=== PATIENT | female | born 1940 | race Caucasian/White ===

== ENCOUNTER 2016-11-25 10:37 | Inpatient (IN) | payer OTHER ==
[2016-11-07 10:42] VITALS: BMI 26.0
--- NOTE | 2016-11-07 11:16 | PAT Medication Instructions ---
Service Date November 07, 2016. Current Home Medication List Acetaminophen (Tylenol), 1,000 MG PO Q6 PRN for Pain Amlodipine (Norvasc), 5 MG PO QPM Atorvastatin (Lipitor), 20 MG PO QPM Calcium/Vitamin D (Os-Nate 500 Plus D), 1 TAB PO QPM Cyanocobalamin (Vitamin B-12 1000 Mcg), 1,000 MCG PO QPM Diltiazem Hcl Coated Beads (Cardizem La), 300 MG PO QPM Levothyroxine Sodium (Tirosint), 1 CAP PO QAM Metoprolol Succinate (Toprol Xl), 25 MG PO QPM Multivitamin (Multivitamin), 1 TAB PO QAM Olmesartan Medoxomil (Benicar *), 40 MG PO QPM Omeprazole (Prilosec), 20 MG PO QPM Probiotic Product (Align), 1 CAP PO DAILY PRN Psyllium (Metamucil Powder), 1 SCOOPS PO Q2D Medication Instructions For Your Scheduled Surgery - Hold the following medications the morning of surgery: Probiotic Product (Align), 1 CAP PO DAILY PRN Psyllium (Metamucil Powder), 1 SCOOPS PO Q2D Multivitamin (Multivitamin), 1 TAB PO QAM - Take the following medications the morning of surgery with a sip of water OTHERWISE NOTHING TO EAT OR DRINK AFTER MIDNIGHT: Levothyroxine Sodium (Tirosint), 1 CAP PO QAM Acetaminophen (Tylenol), 1,000 MG PO Q6 PRN for Pain (may take if needed up to 4 hours prior to surgery) - Take the following medications as scheduled the night before surgery: Omeprazole (Prilosec), 20 MG PO QPM Metoprolol Succinate (Toprol Xl), 25 MG PO QPM Amlodipine (Norvasc), 5 MG PO QPM Atorvastatin (Lipitor), 20 MG PO QPM Calcium/Vitamin D (Os-Nate 500 Plus D), 1 TAB PO QPM Cyanocobalamin (Vitamin B-12 1000 Mcg), 1,000 MCG PO QPM Diltiazem Hcl Coated Beads (Cardizem La), 300 MG PO QPM Acetaminophen (Tylenol), 1,000 MG PO Q6 PRN for Pain - Do Not take the following medications the night before surgery: Olmesartan Medoxomil (Benicar *), 40 MG PO QPM If you have any questions please call us at [phone] or [phone] or [phone]
[2016-11-07 11:35] LABS: BASO % 0.5 %; BASO ABS # 0.04 K/uL (0-0.2); COMPLETE YES; EOS % 6.4 %; HEMATOCRIT 41.4 % (37-47); IG% 0.1 %; LYMPH % 26.9 %; LYMPH ABS # 1.97 K/uL (1.2-3.4); MEAN CELL VOLUME 93.5 fL (80-100); MEAN CORPUSCULAR HEMOGLOBIN 31.6 pg (25-34); MEAN CORPUSCULAR HGB CONC 33.8 g/dl (32-36); MEAN PLATELET VOLUME 10.1 fL (7.4-10.4); MONO % 7.1 %; PLATELET COUNT 327 K/uL (130-400); RED BLOOD COUNT 4.43 M/uL (4.2-5.4); WHITE BLOOD COUNT 7.31 K/uL (4.8-10.8)
[2016-11-07 11:43] LABS: URINE APPEARANCE CLEAR (CLEAR); URINE BILIRUBIN NEG (NEG); URINE COLOR YELLOW; URINE EPITHELIAL CELL AUTO 20-30 /lpf (0-5); URINE NITRITE NEG (NEG); URINE SPECIFIC GRAVITY 1.018 (1.000-1.030); UROBILINOGEN NEG (NEG)
[2016-11-07 11:45] LABS: PROTHROMBIN TIME (PATIENT) 10.3 SECONDS (9.0-12.0)
[2016-11-07 11:51] LABS: MANUAL MICROSCOPIC REQUIRED? NO; REVIEW REQ? NO
[2016-11-07 12:06] LABS: ESTIMATED AVERAGE GLUCOSE 120 mg/dl; HA1C FLAG Normal (Normal)
[2016-11-07 12:07] LABS: BUN/CREATININE RATIO 14.8 (10-20); CALCIUM 9.9 mg/dl (8.5-10.1); CREATININE 1.4 mg/dl (0.60-1.20); POTASSIUM 5.2 mmol/L (3.5-5.1)
--- NOTE | 2016-11-07 12:35 | DIAGNOSTIC IMAGING REPORT ---
CHEST PREADMISSION(PA/LAT) CLINICAL HISTORY: Preoperative evaluation. COMPARISON STUDY: Chest radiograph November 30, 2012. FINDINGS: Lung volumes are normal. There is no pneumothorax or pleural effusion. Cardiac size is normal. Mediastinal contours are normal. There is no evidence of pulmonary edema. There are suspected cholecystectomy clips. IMPRESSION: No acute cardiopulmonary findings. Electronically signed by: John Knapp M.D. 11/07/2016 12:34 PM Dictated Date/Time: 11/07/2016 12:33 PM
--- NOTE | 2016-11-18 10:41 | HISTORY & PHYSICAL EXAMINATION ---
DATE OF ADMISSION: 11/25/2016 SUBJECTIVE AND CHIEF COMPLAINT: Left shoulder pain. HISTORY OF PRESENT ILLNESS: The patient is a 76-year-old female who comes in complaining of shoulder pain on both sides. She says it is more significant on the left in comparison to the right. She states the symptoms have been chronic and nontraumatic in nature. The pain occurs constantly and is described as aching, sharp and throbbing. She has tried cortisone injections, nonsteroidal anti-inflammatories and physical therapy with no relief. She would like to proceed with a left reverse total shoulder arthroplasty. PAST MEDICAL HISTORY: Significant for hypertension, hypercholesterolemia, hypothyroidism and osteoarthritis. PAST SURGICAL HISTORY: Low back fusion, bilateral total hip arthroplasty, left TKA, right carpal tunnel release, cholecystectomy, right shoulder subacromial decompression. SOCIAL HISTORY: She drinks alcohol occasionally. She denies smoking or tobacco use. She denies IV or illegal drug use. She lives in a [address]. She is currently retired. FAMILY HISTORY: Noncontributory. ALLERGIES: LEVAQUIN AND SULFAS. MEDICATIONS: Metoprolol 100 mg one tablet twice a day, Zantac 150 mg one tablet twice a day, multivitamin one tablet daily, Tirosint 50 mcg one tablet daily, omeprazole 20 mg one tablet daily, Toprol XL 25 mg daily, Benicar 40 mg one tablet daily. REVIEW OF SYSTEMS: She denies headaches, fevers, chills, double vision, blurry vision, sore throat, cough, chest pain, nausea, vomiting, diarrhea, constipation, numbness, tingling, tired, urinary difficulties, thoughts to harm herself or harm others or depression. She is positive for joint pain and stiffness in her left shoulder. OBJECTIVE: GENERAL APPEARANCE: The patient is a 76-year-old female who is sitting, in no acute distress. She is well-dressed, well-nourished. She is awake, alert and oriented x3. VITAL SIGNS: She is 5 feet 5 inches tall, 154 pounds, blood pressure is 128/76. HEENT: Normocephalic, atraumatic. Extraocular movements are intact. PERRLA. Mucosa was moist. No septal deviation. NECK: Supple with no lymphadenopathy, no JVD, no thyromegaly. HEART: Regular rate and rhythm with no murmurs or gallops. LUNGS: Clear to auscultation. No wheezing or rhonchi. ABDOMEN: Soft, nontender, nondistended. Normal bowel sounds. No hepatosplenomegaly. EXTREMITIES: Paying particular attention to the left upper extremity, she is able to actively flex to 160 degrees, abduct to 120 degrees, externally rotate to 75 degrees. She has diffuse tenderness over the shoulder. NEUROLOGIC: Cranial nerves II-XII were intact. Pulses were compared bilaterally and were equal. IMAGING: X-rays of the left shoulder demonstrate osteophytic change of the glenohumeral joint with rounding of the humeral head and slight elevation of the humeral head with relation to the acromion. IMPRESSION: Left shoulder degenerative joint disease. PLAN: The patient is scheduled for a left reverse total shoulder arthroplasty. She has failed conservative therapies, which include cortisone injections, nonsteroidal anti-inflammatories and physical therapy. This affects her activities of daily living and make it difficult to perform these. She would like to proceed with a left reverse total shoulder arthroplasty. Risks and benefits were discussed and included, but not limited to infection, DVT, pain, stiffness, need for revision surgery, damage to blood vessels, damage to nerves, PE, and anesthesia risks, were all discussed with the patient and she wishes to proceed. All questions were answered to her satisfaction. There is no DVT prophylaxis needed at this time. Discharge: She would like to be discharged home with home health. Her postop visit will be 12/08/2016 at 9:30 a.m. ANNA
[~2016-11-25] VITALS: Ht 165.1 cm; Wt 71.1 kg
[2016-11-25] VITALS (8 sets, daily range): BP systolic 119–148; BP diastolic 67–80; PULSE 67–95; TEMP 36.3–36.6; O2SAT 95–96; Ht 165.1 cm; Wt 71.1 kg
[~2016-11-25 10:37] MED LIST: ACET-1256 PO; ACETAMINOPHEN 500 MG TAB PO SCH; AMLO-110 PO; ATOR-54 PO; BNC40 PO; BUPIVACAINE 0.5 % 5 MG/1 ML PF 10ML VIAL ONE; CALC500C70 PO; CEFAZOLIN 2000 MG/60 ML D5W 60 ML IV SCH; CYAN10004 PO; DEXAMETHASONE 4 MG TAB PO SCH; DEXAMETHASONE SOD INJ 4 MG/ML VIAL ONE; DILT300T9 PO; FAMOTIDINE 20 MG TAB PO SCH; GABAPENTIN 300 MG CAP PO SCH; LACTATED RINGER'S 1000ML 1,000 ML IV SCH; LACTATED RINGER'S 1000ML IV SCH; LEVO50CA2 PO; METO25TA3 PO; METOCLOPRAMIDE HCL 10 MG TAB PO SCH; MISC4CAP PO; MULT-506 PO; PRLSR20 PO; PSYL58.69 PO; ROPIVACAINE 5MG/ML 30 ML 150 MG, BUPIVACAINE/EPINEPHR 0.5% MPF 30 ML, KETOROLAC TROMETH... INFIL SCH
[2016-11-25] MEDS ORDERED: FENTANYL CITRATE INJ 50 MCG/1 ML 2 ML VIAL ONE (11:31)
[2016-11-25] MEDS ORDERED: MIDAZOLAM HCL 1 MG/ML 2ML VIAL ONE (11:31)
--- NOTE | 2016-11-25 11:44 | History & Physical Bridge Note ---
H&P Re-Evaluation Bridge Note: I have examined the patient, reviewed the History & Physical and in the interval since the performance of the History & Physical I have noted the following changes of clinical significance: No changes noted
[2016-11-25] MEDS: TRANEXAMIC ACID INJ 1,000 MG in SODIUM CHLORIDE 0.9% 100ML 100 ML IV SCH ×2 (12:00→17:26)
[2016-11-25] MEDS ORDERED: LACTATED RINGER'S 1000ML 1,000 ML IV PRN (12:05)
[2016-11-25] MEDS ORDERED: FENTANYL CITRATE INJ 50 MCG/1 ML 2 ML VIAL IV PRN (12:15)
[2016-11-25] MEDS ORDERED: ONDANSETRON INJ 2 MG/ML 2 ML VIAL IV PRN ×2 (12:15→15:00)
[2016-11-25] MEDS ORDERED: POVIDONE-IODINE OP SOLN 30 ML BTL ONE (12:17)
[2016-11-25] MEDS ORDERED: BACITRACIN 50000 UNIT VIAL ONE (12:17)
[2016-11-25] MEDS ORDERED: ORTHO JOINT ANESTHETIC ONE (12:17)
--- NOTE | 2016-11-25 14:14 | [facility] Post Operative Brief Note ---
Immediate Operative Summary Operative Date Nov 25, 2016. Pre-Operative Diagnosis Left Shoulder Degenerative Joint Disease and rotator cuff arthropathy Post-Operative Diagnosis same, plus biceps tear Procedure(s) Performed Left Reverse Total Shoulder Arthroplasty, biceps tenodesis Surgeon Dr. Shun Alvarado Immersion Metal Cleaner Surgeon(s) Pk Champagne PA-C Estimated Blood Loss 50ML Findings above Specimens A. Left Humeral Head Drains 1 hemovac Anesthesia geta, interscalene Complication(s) None Disposition Recovery Room / PACU
[2016-11-25] MEDS ORDERED: ROCURONIUM BROMIDE 10 MG/ML 5 ML VIAL ONE (14:21)
[2016-11-25] MEDS ORDERED: LIDOCAINE HCL 2% 2 ML VIAL (20MG/ML) ONE (14:21)
[2016-11-25] MEDS ORDERED: NEOSTIGMINE METHYLSULFATE 5 MG/5 ML SYR ONE (14:21)
[2016-11-25] MEDS ORDERED: ONDANSETRON INJ 2 MG/ML 2 ML VIAL ONE (14:21)
[2016-11-25] MEDS ORDERED: GLYCOPYRROLATE INJ 0.2 MG/ML VIAL ONE (14:21)
[2016-11-25] MEDS ORDERED: VASOPRESSIN 20 UNIT/ML VIAL ONE (14:21)
[2016-11-25] MEDS ORDERED: PROPOFOL IV EMULSION 10 MG/ML 20 ML VIAL IV ONE (14:21)
[2016-11-25] MEDS ORDERED: SOD PHOSPHATE/SOD BIPHOSPHATE ENEMA 132 ML BTL PR PRN (15:00)
[2016-11-25] MEDS ORDERED: BISACODYL 10 MG SUPP PR PRN (15:00)
[2016-11-25] MEDS ORDERED: ALUMINUM/MAGNESIUM SUSP 30 ML UDC PO PRN (15:00)
[2016-11-25] MEDS ORDERED: ZOLPIDEM TARTRATE 5 MG TAB PO PRN (15:00)
[2016-11-25] MEDS ORDERED: OXYCODONE HCL IR 5 MG TAB (IMMEDIATE RELEASE) PO PRN (15:00)
[2016-11-25] MEDS ORDERED: MAGNESIUM HYDROXIDE SUSP 30 ML UDC PO PRN (15:00)
[2016-11-25] MEDS ORDERED: NO NSAIDS SCH (15:00)
--- NOTE | 2016-11-25 15:17 | DIAGNOSTIC IMAGING REPORT ---
LEFT SHOULDER MIN 2 VIEWS ROUTINE CLINICAL HISTORY: Post shoulder surgery COMPARISON: None FINDINGS: Alignment of the left shoulder arthroplasty is anatomic. There is no periprosthetic fracture or unexpected radiopaque foreign body. Drains and skin erik are present. IMPRESSION: Expected findings following left shoulder arthroplasty. Electronically signed by: John Knapp M.D. 11/25/2016 3:16 PM Dictated Date/Time: 11/25/2016 3:15 PM
--- NOTE | 2016-11-25 15:28 | Anesthesiology Progress Note ---
Anesthesia Post Op Note Date & Time Nov 25, 2016 at 15:26 Vital Signs Pain Intensity: 0 Vital Signs Past 12 Hours Date Time Temp Pulse Resp B/P (MAP) Pulse Ox O2 Delivery O2 Flow Rate FiO2 11/25/16 15:20 36.2 71 16 123/67 96 Room Air Mask 11/25/16 15:10 73 16 120/74 96 Room Air Mask 11/25/16 15:00 76 16 123/77 98 Mask 10 11/25/16 14:50 72 16 117/66 99 Mask 10 11/25/16 14:44 36.4 79 16 113/86 99 Mask 10 11/25/16 10:51 36.5 95 20 148/72 96 Room Air Notes Mental Status: alert / awake / arousable, participated in evaluation Pt Amnestic to Procedure: Yes Nausea / Vomiting: adequately controlled Pain: adequately controlled Airway Patency, RR, SpO2: stable & adequate BP & HR: stable & adequate Hydration State: stable & adequate Anesthetic Complications: no major complications apparent Pt doing well.
[2016-11-25] MEDS: D5W AND 1/2NSS + 20MEQ KCL 1,000 ML IV SCH (17:25)
[2016-11-25] MEDS: FERROUS GLUCONATE 324 MG TAB PO SCH (18:31)
--- NOTE | 2016-11-25 20:12 | OPERATIVE REPORT ---
DATE OF OPERATION: 11/25/2016 PREOPERATIVE DIAGNOSIS: Left shoulder degenerative joint disease and rotator cuff arthropathy. POSTOPERATIVE DIAGNOSIS: Same. PROCEDURE: Left shoulder reverse total shoulder arthroplasty. SURGEON: Shun Alvarado MD HEALTH UNDERWRITER: Pk Champagne PA-C who was necessary for assistance of the procedure with positioning, prepping, draping, retraction and closure. ANESTHESIA: General endotracheal anesthesia with interscalene block. SPECIMEN: Bone and tissue. DRAINS: One medium Hemovac. ESTIMATED BLOOD LOSS: 20 mL COMPLICATIONS: None. IMPLANTS: Exactech Equinox 13 mm press fit stem, standard glenoid plate, 38 mm glenosphere, +0 humeral tray and +2.5 mm humeral liner. INDICATIONS: The patient is a 76-year-old female with long-standing pain of bilateral shoulders, left greater than right. She has failed conservative measures including injection, anti-inflammatories and rehab. Failing conservative measures, she wished to proceed with left shoulder arthroplasty. Given the rounding of her humeral head, slight elevation of the humeral head and significant osteophytic change off of the greater tuberosity, she would be best served with a reverse total shoulder arthroplasty given that she likely has significant rotator cuff disease. Risks, benefits and alternatives of the surgery including but not limited to infection, DVT, pain, stiffness, need for urgent surgery, failure to relieve all symptoms, damage to blood vessels, damage to nerves, risks of anesthesia were discussed with the patient and she wished to proceed. DESCRIPTION OF PROCEDURE: The patient was identified, laterality was confirmed and marked. She received a preoperative antibiotic as well as interscalene block. She was transferred to the operating room, placed in supine position and induced general endotracheal anesthesia. Then she was placed into a beach chair position, secured with the Tenet positioner. The left shoulder was prepped and draped in usual sterile manner with ChloraPrep. I made a longitudinal incision just lateral to the coracoid, sharply incised the skin utilizing Bovie electrocautery to achieve hemostasis. I mobilized the deltoid laterally and taking the cephalic vein laterally. I then identified the long head of biceps tendon. She had significant tearing of the biceps proximally with good tendon distally. I performed an situ biceps tenodesis with interrupted #2 FiberWire suture and then excised the tendinotic torn portion proximally. She had evidence of a subscapularis tear as well as fairly significant degenerative tendinotic tissue of the supraspinatus and high-grade partial thickness tearing of the infraspinatus insertion. The subscapularis remaining tissue was released and I released the inferior capsule. She had extremely prominent anterior inferior osteophyte of the humeral head that was excised with a rongeur as well as a significant osteophyte off of the greater tuberosity that was debrided. I then pinned into place a humeral cutting guide and made my humeral head resection. I then sequentially reamed and sequentially broached up to a size 13 mm stem. I placed an 11 mm stem into position and then exposed the glenoid. I removed the glenoid labrum and residual biceps tendon stump. I debrided the glenoid with a curette to establish good bleeding response and removed some peripheral osteophytes of the glenoid. There was a large loose body posteriorly that was removed. I then drilled for the central post of the glenoid plate. The glenoid plate post was bone grafted with bone taken from the humeral head and then packed into position. I then placed 4 compression screws into the glenoid and then secured with set screws. The 38 mm glenosphere was then placed into position and I secured with a set screw. I then placed the definitive 13 mm humeral stem into position and then sequentially trialed up to a size +2.5 mm humeral liner. The trial components were removed. The wound was thoroughly irrigated. Deep tissues were anesthetized with Orthomix solution. I then placed the definitive +0 humeral tray into position and locked it with a torque-limiting screw. I then impacted the definitive +2.5 mm humeral liner and reduced the shoulder. We had good range of motion and good soft tissue tensioning. A deep drain was placed. Deltopectoral interval was closed with interrupted #1 Ethibond sutures, subcutaneous tissue with interrupted 2-0 Vicryl suture and the skin with erik. Sterile dressing was applied and sling placed. All needle and sponge counts were correct at the end of the procedure. The patient was transferred to the PACU in stable condition without apparent complication. I attest to the content of the Intraoperative Record and any orders documented therein. Any exceptions are noted below. ANNA
[2016-11-25] MEDS ORDERED: SENNA 8.6 MG TAB PO SCH (21:00)
[2016-11-25] MEDS: DOCUSATE SODIUM 100 MG CAP PO SCH (21:39)
[2016-11-25] MEDS: OXYCODONE HCL 10 MG TABCR (OXYCONTIN) PO SCH (21:39)
[2016-11-25] MEDS: ACETAMINOPHEN 500 MG TAB PO SCH (21:40)
[2016-11-25] MEDS ORDERED: CEFAZOLIN IV 1,000 MG in DEXTROSE 5% 50ML 50 ML IV SCH (22:00)
[2016-11-26] MEDS: D5W AND 1/2NSS + 20MEQ KCL 1,000 ML IV SCH (03:11)
[2016-11-26 04:06] VITALS: BP 146/85; PULSE 74; TEMP 36.5; O2SAT 94
[2016-11-26] MEDS: ACETAMINOPHEN 500 MG TAB PO SCH ×2 (05:41→13:56)
[2016-11-26 06:07] LABS: HEMATOCRIT 36.4 % (37-47); MEAN CELL VOLUME 90.1 fL (80-100); MEAN CORPUSCULAR HEMOGLOBIN 30.4 pg (25-34); MEAN CORPUSCULAR HGB CONC 33.8 g/dl (32-36); MEAN PLATELET VOLUME 9.9 fL (7.4-10.4); PLATELET COUNT 299 K/uL (130-400); RED BLOOD COUNT 4.04 M/uL (4.2-5.4)
[2016-11-26 06:10] LABS: INR 0.9 (0.9-1.1); PROTHROMBIN TIME (PATIENT) 10.1 SECONDS (9.0-12.0)
[2016-11-26 06:40] LABS: BUN/CREATININE RATIO 15.7 (10-20); CALCIUM 8.7 mg/dl (8.5-10.1); CREATININE 1.5 mg/dl (0.60-1.20); POTASSIUM 4.2 mmol/L (3.5-5.1)
[2016-11-26 07:10] VITALS: BP 147/76; PULSE 81; TEMP 36.4; O2SAT 96
[2016-11-26] MEDS: OXYCODONE HCL 10 MG TABCR (OXYCONTIN) PO SCH (08:33)
[2016-11-26] MEDS: DOCUSATE SODIUM 100 MG CAP PO SCH (08:34)
[2016-11-26] MEDS: FERROUS GLUCONATE 324 MG TAB PO SCH ×2 (08:34→13:56)
[2016-11-26] MEDS ORDERED: PANTOprazole SOD 40 MG TAB PO SCH (09:00)
[2016-11-26] MEDS ORDERED: MULTIVITAMIN TAB PO SCH (09:00)
--- NOTE | 2016-11-26 09:03 | Orthopedic Progress Note ---
Orthopedic Progress Note Date of Service Nov 26, 2016. Subjective Post OP Day: 1 Reports: feeling well, pain controlled w PO medications, Denies: complaints, chest pain, SOB, nausea / vomiting, light headedness, calf pain Additional Notes: Drain output last shift 95cc's Objective N/V intact, capillary refill less than 2 sec., dressing C/D/I, A&O x3 Sling in tact, fingers mobile. Date Time Temp Pulse Resp B/P (MAP) Pulse Ox O2 Delivery O2 Flow Rate FiO2 11/26/16 07:30 Room Air 11/26/16 07:10 36.4 81 16 147/76 (99) 96 Room Air 11/26/16 04:06 36.5 74 16 146/85 (105) 94 Room Air 11/25/16 23:30 Room Air 11/25/16 22:52 36.5 85 18 134/80 (98) 96 Room Air 11/25/16 18:52 36.5 67 16 146/80 (102) 95 Room Air 11/25/16 17:55 36.6 77 16 121/77 (92) 95 Room Air 11/25/16 17:25 36.6 76 16 134/76 (95) 96 Room Air 11/25/16 16:55 36.3 81 16 129/80 (96) 96 Room Air 11/25/16 16:25 36.3 72 16 119/67 (84) 95 Room Air 11/25/16 15:55 95 Room Air 11/25/16 15:55 95 Room Air Mask 11/25/16 15:55 36.4 79 16 119/74 (89) 95 Room Air 11/25/16 15:40 36.2 73 16 123/59 94 Room Air Mask 11/25/16 15:30 36.2 70 16 117/65 95 Room Air Mask 11/25/16 15:20 36.2 71 16 123/67 96 Room Air Mask 11/25/16 15:10 73 16 120/74 96 Room Air Mask 11/25/16 15:00 76 16 123/77 98 Mask 10 11/25/16 14:50 72 16 117/66 99 Mask 10 11/25/16 14:44 36.4 79 16 113/86 99 Mask 10 11/25/16 10:51 36.5 95 20 148/72 96 Room Air Laboratory Results 24 Hours: Test 11/26/16 05:25 Hematocrit 36.4 % Hemoglobin 12.3 g/dL Prothromb Time International Ratio 0.9 Prothrombin Time 10.1 SECONDS Assessment & Plan Assessment: POD #1, Left reversed TSA, biceps tenodesis. Plan: PT/ OT D/C planning- Home today No formal PT until follow in office. Discharge Planning Discharge Planning: home Pain Management: Oxycontin, PO Tylenol, Oxy IR
[2016-11-26] MEDS ORDERED: OXYSR10 PO (09:06)
[2016-11-26] MEDS ORDERED: RXC5 PO (09:06)
[2016-11-26] MEDS ORDERED: ONDA8TAB6 PO (09:06)
[2016-11-26] MEDS ORDERED: ACET-1138 PO (09:06)
--- NOTE | 2016-11-26 09:09 | Discharge Instructions ---
Discharge Instructions Date of Service Nov 26, 2016. Admission Reason for Admission: Left Shoulder Osteoarthristis Discharge Discharge Diagnosis / Problem: LEFT SHOULDER REVERSED TSA Discharge Goals Goal(s): Improve function Activity Recommendations Activity Limitations: as noted below . Instructions / Follow-Up Instructions / Follow-Up ACTIVITY RECOMMENDATIONS: SELF CARE INSTRUCTIONS AFTER TOTAL SHOULDER ARTHROPLASTY REVERSE A. You may do daily exercises as taught in physical therapy while in hospital. No lifting with the operative arm. B. You are to wear your sling/immobilizer at all times EXCEPT when performing your daily exercises and for hygiene purposes. C. You may perform dry, daily dressing changes. Please keep your incision covered. You may shower 48 hours after surgery. Do not apply soap or any ointment/ lotions directly over incision. Do not soak incision in bath tub/swimming pool. D. You may use ice as needed to operative shoulder. SPECIAL CARE INSTRUCTIONS: VERY IMPORTANT TO READ AND REVIEW A. There are a few signs you need to watch for after you are home. Call [facility] at [phone] if you experience any of the followin. Increased severe shoulder pain. Some pain is expected especially when you exercise. 2. Increased swelling in you shoulder or arm; pain or swelling in either upper extremity. 3. Any fluid drainage from the incision. 4. Shortness of breath or chest pain. B. Please call [facility] at [phone] if you have any questions or concerns about your operation or recovery. C. Call your physician if: 1. Temperature is greater than 101 degrees (F). 2. Pain is not relieved by prescribed pain medications. 3. Increase drainage or redness from incision. 4. Unanswered questions or concerns. FOLLOW UP VISIT: Please call [facility] at [phone] to schedule a follow up appointment with Dr. Saenz or his PA in 12-14 days from your surgery date. NO FORMAL PT UNTIL AFTER FIRST FOLLOW UP APPT. Current Hospital Diet Patient's current hospital diet: Regular Diet Discharge Diet Recommended Diet: Regular Diet Procedures Procedures Performed: Left Reverse Total Shoulder Arthroplasty, biceps tenodesis Pending Studies Studies pending at discharge: no Laboratory Results Hemoglobin A1c Test 11/07/16 10:34 Range/Units Estimated Average Glucose 120 mg/dl Hemoglobin A1c 5.8 H 4.5-5.6 % Medical Emergencies . Who to Call and When: Medical Emergencies: If at any time you feel your situation is an emergency, please call 911 immediately. . Non-Emergent Contact Non-Emergency issues call your: Primary Care Provider . "Provider Documentation" section prepared by Alvaro Hernandez. . VTE Core Measure Inpt VTE Proph given/why not?: BRIT Barriga's [place] Drug Monitoring Program Search Results: patient reviewed within database, no issues identified
[2016-11-26] MEDS ORDERED: NURSING VERBAL MED ORDER ONE (11:00)
[2016-11-26] MEDS ORDERED: METHYLPREDNISOLONE ACETATE 80 MG/ML VIAL IA STA (11:10)
[2016-11-26] MEDS ORDERED: BUPIVACAINE 0.5 % 5 MG/1 ML PF 10ML VIAL IA STA (11:11)
[2016-11-26 11:55] VITALS: BP 147/76; PULSE 81; TEMP 36.4; O2SAT 96
--- NOTE | 2016-12-03 05:14 | DISCHARGE SUMMARY ---
ADMISSION DIAGNOSIS: Left shoulder osteoarthritis. DISCHARGE DIAGNOSIS: Status post left reverse total shoulder arthroplasty. CONSULTS: None. PROCEDURE: On 11/25/2016 patient underwent a left reverse total shoulder arthroplasty, with biceps tenodesis. HISTORY OF PRESENT ILLNESS: The patient is a 76-year-old female who came in complaining of shoulder pain on both sides. She said it is more significant on the left compared to the right. She states the symptoms are chronic and nontraumatic in nature. She has tried cortisone injections, nonsteroidal anti-inflammatories and physical therapy with no relief. She would like to proceed with a left reverse total shoulder arthroplasty. HOSPITAL COURSE: Postop day 1, patient was feeling well. Pain was controlled with p.o. medications. She denied chest pain, shortness of breath, nausea, vomiting, lightheadedness or calf pain. Her drain output was 95 mL. Sling was intact and fingers were mobile. Discharge plan was to go home today with no formal physical therapy until following up in the office. DISCHARGE CONDITION: Stable. DISCHARGE DISPOSITION: Home with self-care. DISCHARGE MEDICATIONS: Tylenol 1000 mg by mouth every 8 hours for 21 days, Zofran 8 mg by mouth every 8 hours as needed for nausea, OxyContin 10 mg by mouth every 12 hours, oxycodone 5-10 mg by mouth every 4 hours as needed for pain, amlodipine 5 mg by mouth daily in the evening, atorvastatin 20 mg by mouth daily in the evening, calcium/vitamin D one tablet by mouth daily in the evening, vitamin B12 1000 mcg by mouth daily in the evening, diltiazem 300 mg by mouth daily in the evening, levothyroxine 50 mcg by mouth daily in the morning, metoprolol 25 mg by mouth daily in the evening, multivitamin 1 tablet by mouth daily in the morning, Benicar 40 mg by mouth daily in the evening, omeprazole 20 mg by mouth daily in the evening, Metamucil powder once daily by mouth every other day as needed. INSTRUCTIONS: She is to consume her regular diet. She may perform daily exercises as taught in physical therapy while in the hospital. No lifting with the operative arm She is to wear a sling or immobilizer at all times except when performing her daily exercises and for hygiene purposes, may perform dry daily dressing changes, keep her incision covered and may shower 48 hours after surgery, do not apply soap or ointment directly over the incision, do not soak the incision in a bathtub or swimming pool. She may use ice as needed to the operative arm. Silverlon dressing is to be removed after 7 days and dry dressing changes can be used thereafter. She is to call [facility] if she notices any increase in shoulder pain, increase in swelling, redness or drainage from the incision. She is to follow up with Dr. Alvarado or his PA in 12-14 days from the date of the surgery. ANNA
== END 2016-11-26 14:05 | disposition home or self-care (01) | DRG 483 ==
LOC: C.ACU 10:37 → C.3E 11:40 → ENRESERV 15:14
PROVIDERS: ADMIT Orthopaedic Surgery; ATTEND Orthopaedic Surgery
PROC: 0RRK00Z Replacement of Left Shoulder Joint with Reverse Ball and Socket Synthetic Substitute, Open Approach (ICD-10-PCS; principal; 2016-11-25 13:45)
DX: M19.012 Primary osteoarthritis, left shoulder (principal); M75.102 Unspecified rotator cuff tear or rupture of left shoulder, not specified as traumatic; I12.9 Hypertensive chronic kidney disease with stage 1 through stage 4 chronic kidney disease, or unspecified chronic kidney disease; N18.3 Chronic kidney disease, stage 3 (moderate); E78.00 Pure hypercholesterolemia, unspecified; E03.9 Hypothyroidism, unspecified; K21.9 Gastro-esophageal reflux disease without esophagitis; M79.7 Fibromyalgia; H90.5 Unspecified sensorineural hearing loss; F41.9 Anxiety disorder, unspecified; Z96.643 Presence of artificial hip joint, bilateral; Z96.652 Presence of left artificial knee joint; Z98.1 Arthrodesis status; Z79.899 Other long term (current) drug therapy

== ENCOUNTER → 2017-10-23 | Outpatient (CLI) | payer OTHER ==
[~2017-10-23] MED LIST changes: +ACET-1138 PO; -ACET-1256 PO; -ACETAMINOPHEN 500 MG TAB PO SCH; -BUPIVACAINE 0.5 % 5 MG/1 ML PF 10ML VIAL ONE; -CEFAZOLIN 2000 MG/60 ML D5W 60 ML IV SCH; -DEXAMETHASONE 4 MG TAB PO SCH; -DEXAMETHASONE SOD INJ 4 MG/ML VIAL ONE; -FAMOTIDINE 20 MG TAB PO SCH; -GABAPENTIN 300 MG CAP PO SCH; -LACTATED RINGER'S 1000ML 1,000 ML IV SCH; -LACTATED RINGER'S 1000ML IV SCH; -METO25TA3 PO; +METO25TA4 PO; -METOCLOPRAMIDE HCL 10 MG TAB PO SCH; -MISC4CAP PO; +OXYSR10 PO; -ROPIVACAINE 5MG/ML 30 ML 150 MG, BUPIVACAINE/EPINEPHR 0.5% MPF 30 ML, KETOROLAC TROMETH... INFIL SCH; +RXC5 PO
[2017-10-23 12:09] LABS: BASO % 0.3 %; BASO ABS # 0.02 K/uL (0-0.2); EOS % 7.8 %; EOS ABS # 0.54 K/uL (0-0.5); HEMATOCRIT 40.5 % (37-47); HEMOGLOBIN 13.4 g/dL (12.0-16.0); IG# 0.02 K/uL (0.00-0.02); LYMPH % 29.8 %; LYMPH ABS # 2.06 K/uL (1.2-3.4); MEAN CORPUSCULAR HEMOGLOBIN 29.8 pg (25-34); MEAN CORPUSCULAR HGB CONC 33.1 g/dl (32-36); MEAN PLATELET VOLUME 9.6 fL (7.4-10.4); MONO % 8.4 %; MONO ABS # 0.58 K/uL (0.11-0.59); NEUT % 53.4 %; PLATELET COUNT 334 K/uL (130-400); RED CELL DISTRIBUTION WIDTH CV 13.4 % (11.5-14.5); RED CELL DISTRIBUTION WIDTH SD 44.1 fL (36.4-46.3); WHITE BLOOD COUNT 6.92 K/uL (4.8-10.8)
--- NOTE | 2017-10-23 14:04 | DIAGNOSTIC IMAGING REPORT ---
BONE SCAN 3 PHASE LIMITED CLINICAL HISTORY: 77 years-old Female presenting with PAIN/SWELLING, S/P GERARD, R/O SEPTIC LOOSENING. TECHNIQUE: Following the IV administration of 25.5 mCi of technetium 99m MDP, three-phase bone scan of the hips was performed. Anterior flow images as well as anterior and posterior blood pool phase images were acquired. Bone phase imaging of hips was performed at three hours in multiple obliquities. COMPARISON: 01/23/2013. FINDINGS: On initial flow imaging, symmetric radiotracer within the vasculature. No soft tissue hyperemia. On subsequent blood pool phase imaging, symmetric radiotracer throughout the vasculature and soft tissues. Photopenia in the region of the femoral heads, necks, and proximal metadiaphyses consistent with known total hip prostheses. On bone phase imaging, no asymmetry or focality of radiotracer distribution on delayed imaging. Expected appearance of the bilateral total hip arthroplasty. Excretion of radiotracer in the urinary bladder, which is largely decompressed. IMPRESSION: Normal nuclear medicine bone scan of the bilateral total hip prostheses. No evidence of loosening or infection. Electronically signed by: Shun Romero M.D. 10/23/2017 2:03 PM Dictated Date/Time: 10/23/2017 2:01 PM
== END | disposition home or self-care (01) ==
LOC: C.NUCL 09:58
DX: M25.551 Pain in right hip (principal); Z96.643 Presence of artificial hip joint, bilateral

== ENCOUNTER 2018-01-26 05:34 | Inpatient (IN) | payer OTHER ==
[2017-12-13 11:44] VITALS: BMI 26.0
[2018-01-01 14:40] VITALS: BMI 27.0
--- NOTE | 2018-01-01 15:10 | PAT Medication Instructions ---
Service Date Jan 01, 2018. Current Home Medication List Atorvastatin (Lipitor), 1 TAB PO QPM Calcium/Vitamin D (Os-Nate 500 Plus D), 1 TAB PO QPM Carvedilol (Coreg), 6.25 MG PO QPM Diltiazem Hcl Coated Beads (Matzim La), 1 TAB PO QPM Diltiazem Hcl Extended Release (Diltiazem Hcl), 1 CAP PO QPM Fluticasone Propionate (Nasal) (Flonase Allergy Relief), 1-2 SPRAY TRINI HS Gabapentin (Neurontin), 300 MG PO QPM Levothyroxine Sodium (Synthroid), 100 MCG PO QAM Loratadine (Claritin), 10 MG PO QAM Meloxicam (Mobic), 15 MG PO QPM Multivitamin (Multivitamin), 1 TAB PO QAM Naproxen (Aleve), 220 MG PO UD PRN for PRN Olmesartan Medoxomil (Benicar), 1 TAB PO QAM Omeprazole (Prilosec), 20 MG PO QPM Pantoprazole (Protonix), 40 MG PO QPM Psyllium (Metamucil), 1 DOSE PO UD PRN for PRN Medication Instructions For Your Scheduled Surgery -Hold the following medications per your surgeon's instructions: Meloxicam (Mobic), 15 MG PO QPM Naproxen (Aleve), 220 MG PO UD PRN for PRN - Hold the following medications the morning of surgery: Loratadine (Claritin), 10 MG PO QAM Multivitamin (Multivitamin), 1 TAB PO QAM Olmesartan Medoxomil (Benicar), 1 TAB PO QAM Psyllium (Metamucil), 1 DOSE PO UD PRN for PRN - Take the following medications the morning of surgery with a sip of water: Levothyroxine Sodium (Synthroid), 100 MCG PO QAM - Take the following medications as scheduled the night before surgery: Atorvastatin (Lipitor), 1 TAB PO QPM Calcium/Vitamin D (Os-Nate 500 Plus D), 1 TAB PO QPM Carvedilol (Coreg), 6.25 MG PO QPM Diltiazem Hcl Extended Release (Diltiazem Hcl), 1 CAP PO QPM Fluticasone Propionate (Nasal) (Flonase Allergy Relief), 1-2 SPRAY TRINI HS Gabapentin (Neurontin), 300 MG PO QPM Omeprazole (Prilosec), 20 MG PO QPM Psyllium (Metamucil), 1 DOSE PO UD PRN for PRN (if needed) If you have any questions please call us at [phone] or [phone] or [phone]
[2018-01-26] VITALS (8 sets, daily range): BP systolic 128–155; BP diastolic 70–84; PULSE 57–93; TEMP 35.1–36.7; O2SAT 95–100; Ht 165.1 cm; Wt 74.1 kg
[~2018-01-26] VITALS: Ht 165.1 cm; Wt 74.1 kg
[~2018-01-26 05:34] MED LIST changes: -ACET-1138 PO; -AMLO-110 PO; -ATOR-54 PO; +CARV6.252 PO; +CLR10 PO; -CYAN10004 PO; +DILT300C35 PO; -DILT300T9 PO; +FLUT0.15 NAE; +GABA-113 PO; +LEVO100T PO; -LEVO50CA2 PO; +LPT10 PO; +MELO7.5T5 PO; -METO25TA4 PO; +NAPR1TAB9 PO; -OXYSR10 PO; +PANT40TA PO; +PSYL48.59 PO; -PSYL58.69 PO; -RXC5 PO; +[UNRECOGNIZED DRUG - CODE] PO
[2018-01-26] MEDS ORDERED: ACETAMINOPHEN 500 MG TAB PO SCH (06:00)
[2018-01-26] MEDS ORDERED: FAMOTIDINE 20 MG TAB PO SCH (06:00)
[2018-01-26] MEDS ORDERED: TRANEXAMIC ACID INJ 1,000 MG x 1 Bag Intra-Op IV SCH ×2 (06:00)
[2018-01-26] MEDS ORDERED: LACTATED RINGER'S 1000ML 1,000 ML IV SCH (06:00)
[2018-01-26] MEDS ORDERED: ROPIVACAINE 5MG/ML 30 ML 150 MG, BUPIVACAINE 0.5% MPF INJ 30 ML, EpINEphrine HCL INJ 0.... INFIL SCH ×8 (06:00)
[2018-01-26] MEDS ORDERED: METOCLOPRAMIDE HCL 10 MG TAB PO SCH (06:00)
[2018-01-26] MEDS ORDERED: GABAPENTIN 300 MG CAP PO SCH ×2 (06:00→21:00)
[2018-01-26] MEDS ORDERED: CEFAZOLIN 1000MG IV PUSH 7.5 ML IV SCH ×2 (06:00→16:00)
[2018-01-26] MEDS ORDERED: DEXAMETHASONE 4 MG TAB PO SCH (06:00)
[2018-01-26] MEDS: TRANEXAMIC ACID INJ 1,000 MG x 2 Bags IV SCH ×4 (06:30→07:55)
[2018-01-26] MEDS ORDERED: CLONIDINE HCL 100 MCG/ML SYRINGE ONE (06:36)
[2018-01-26] MEDS ORDERED: ROPIVACAINE 0.5% 5 MG/ML 30 ML VIAL ONE (06:36)
--- NOTE | 2018-01-26 06:54 | History and Physical ---
History & Physical Date Jan 26, 2018. Chief Complaint R shoulder pain History of Present Illness The patient is a 77 year old female with complaints of right shoulder arthritis Past Medical/Surgical History Medical Problems: (1) DJD of left shoulder Allergies Coded Allergies: Levofloxacin (Verified Allergy, Severe, MENTAL CHANGES,RESTLESSNESS, SOB, NAUSEA AND VOMITING, 01/26/18) Acetaminophen (Verified Allergy, Unknown, N/V, 01/26/18) Codeine (Verified Allergy, Unknown, N/V, 01/26/18) Sulfa Antibiotics (Verified Allergy, Unknown, UNKNOWN, 01/26/18) Amlodipine (Verified Adverse Reaction, Intermediate, DIARRHEA, N&V, ) Clonidine (Verified Adverse Reaction, Intermediate, N&V, DIARRHEA, 01/26/18 ) Hydrochlorothiazide (Verified Adverse Reaction, Intermediate, DIARRHEA, N& V, 01/26/18) Prednisone (Verified Adverse Reaction, Intermediate, BLOOD PRESSURE GOES UP OVER 200, 01/26/18) Home Medications Scheduled Atorvastatin (Lipitor), 1 TAB PO QPM Calcium/Vitamin D (Os-Nate 500 Plus D), 1 TAB PO QPM Carvedilol (Coreg), 6.25 MG PO QPM Diltiazem Hcl Coated Beads (Matzim La), 1 TAB PO QPM Fluticasone Propionate (Nasal) (Flonase Allergy Relief), 1-2 SPRAY TRINI HS Gabapentin (Neurontin), 300 MG PO QPM Levothyroxine Sodium (Synthroid), 100 MCG PO QAM Loratadine (Claritin), 10 MG PO QAM Meloxicam (Mobic), 15 MG PO QPM Multivitamin (Multivitamin), 1 TAB PO QAM Olmesartan Medoxomil (Benicar), 1 TAB PO QAM Pantoprazole (Protonix), 40 MG PO QPM Scheduled PRN Naproxen (Aleve), 220 MG PO UD PRN for PRN Psyllium (Metamucil), 1 DOSE PO UD PRN for PRN Physical Examination Skin: warm/dry Eyes: normal inspection ENT: normal ENT inspection Respiratory/Chest: no respiratory distress Cardiovascular: no edema Diagnosis right shoulder rotator cuff arthropathy Plan of Treatment right reverse total shoulder arthroplasty
[2018-01-26] MEDS ORDERED: ONDANSETRON INJ 2 MG/ML 2 ML VIAL ONE (07:16)
[2018-01-26] MEDS ORDERED: ROCURONIUM BROMIDE 10 MG/ML 5 ML VIAL ONE (07:16)
[2018-01-26] MEDS ORDERED: MIDAZOLAM HCL 1 MG/ML 2ML VIAL ONE (07:16)
[2018-01-26] MEDS ORDERED: PROPOFOL IV EMULSION 10 MG/ML 20 ML VIAL ONE (07:16)
[2018-01-26] MEDS ORDERED: LIDOCAINE HCL 2% 2 ML VIAL (20MG/ML) ONE (07:16)
[2018-01-26] MEDS ORDERED: FENTANYL CITRATE INJ 50 MCG/1 ML 2 ML VIAL ONE (07:16)
[2018-01-26] MEDS ORDERED: ORTHO JOINT ANESTHETIC ONE (07:21)
[2018-01-26] MEDS ORDERED: VANCOMYCIN HCL 1000MG/20ML VIAL ONE (07:21)
[2018-01-26] MEDS: POVIDONE-IODINE OP SOLN 30 ML BTL ONE ×2 (07:21→09:00)
[2018-01-26] MEDS: THROMBIN FOR SOLN 20000 UNIT KIT ONE ×2 (07:22→14:57)
[2018-01-26] MEDS: BACITRACIN 50000 UNIT VIAL ONE ×2 (07:22→09:00)
[2018-01-26] MEDS ORDERED: EpINEphrine INJ 1MG/ML AMP 1 MG/ML AMP ONE (07:56)
[2018-01-26] MEDS ORDERED: FENTANYL CITRATE INJ 50 MCG/1 ML 2 ML VIAL IV PRN (08:00)
[2018-01-26] MEDS ORDERED: ATROPINE SULFATE 0.1 MG/ML 5ML SYR IV PRN (08:00)
[2018-01-26] MEDS ORDERED: ONDANSETRON INJ 2 MG/ML 2 ML VIAL IV PRN ×2 (08:00→10:15)
[2018-01-26] MEDS ORDERED: EpHEDrine SULFATE INJ 50 MG/ML AMP IV PRN (08:00)
[2018-01-26] MEDS ORDERED: CEFAZOLIN SOD 1 GM VIAL ONE (08:32)
[2018-01-26] MEDS ORDERED: GLYCOPYRROLATE INJ 0.2 MG/ML VIAL ONE (08:59)
[2018-01-26] MEDS ORDERED: NEOSTIGMINE METHYLSULFATE 5 MG/5 ML SYR ONE (08:59)
[2018-01-26] MEDS ORDERED: EpHEDrine SULFATE 50MG/5ML SYR ONE (09:03)
--- NOTE | 2018-01-26 09:47 | [facility] Operative Report ---
Operative Report Operative Date Jan 26, 2018. Pre-Operative Diagnosis Right Shoulder Rotator Cuff Arthropathy Post-Operative Diagnosis SAME plus tear long head biceps tendon Procedure(s) Performed Right Reverse Total Shoulder, Right biceps tenodesis Surgeon Dr. Shun Alvarado Administrative Resources Associate Surgeon(s) Rosalino Pino PA-C Estimated Blood Loss 50mL Findings As above Specimens A. Right Humeral Head Drains 1 Hemovac Anesthesia Type General Regional Complication(s) none Disposition Recovery Room / PACU Indications The patient is a 77-year-old female long-standing rotator cuff arthropathy and arthritic change. She has failed conservative measures including injection, anti-inflammatories, rehab. She wishes to proceed with a right reverse total shoulder arthroplasty. Description of Procedure Risks, benefits and alternatives to surgery including, but not limited to, infection DVT, pain, stiffness, need for revision surgery, failure to relieve all symptoms, damage to blood vessels, damage to nerves, risk of anesthesia were discussed with the patient and they wished to proceed. The patient was identified. Laterality was confirmed and marked. The patient received a preoperative antibiotic as well as an interscalene block. They were transferred to the operating room and placed in the supine position and induced into general endotracheal anesthesia per the anesthesia staff. The patient was then safely transferred to a slight beachchair position. The patient was secured in the Tenet positioner. All pressure points were well padded. The shoulder was prepped and draped in the usual sterile manner with ChloraPrep. The arm was secured in the Spider tony. I made a longitudinal incision just lateral to the coracoid, sharply incising through the skin and utilizing Bovie electrocautery to achieve hemostasis. I identified the cephalic vein and mobilized it laterally with the deltoid. I mobilize the pectoralis and mobilize this medially releasing a small portion of the upper border of the pec tendon to improve visualization. I then identified and mobilized the conjoined tendon. I identified the long head of the biceps tendon. The long head of the biceps tendon had significant tendinosis and tearing proximally. I performed an in situ biceps tenodesis with interrupted #2 FiberWire suture. I then released the subscapularis. I pinned into place my humeral head version cutting guide and made my humeral head resection. I then sequentially reamed and sequentially broached. I then placed the trial humeral stem into the shoulder. I placed retractors around the glenoid and then excised the residual biceps tendon stump and glenoid labrum. I elevated the soft tissues and the inferior aspect of the glenoid to improve exposure and released tissues circumferentially. I then positioned and drilled for the central post for the glenoid plate. The glenoid plate was bone grafted with bone taken from the humeral head. I impacted the definitive glenoid plate into position and then placed a total of 4 compression screws that were then locked into position with locking caps. I then placed the glenosphere onto the plate and secured it with a locking screw. I then removed the trial humeral stem and placed the definitive humeral stem. I trialed off of the definitive stem. The definitive components used were [employer] Equinox: Preserve short humeral press-fit stem: 8 Standard glenoid plate Glenosphere: 38 Humeral tray:+ 0 Humeral polyethylene liner: + 2.5 I thoroughly irrigated the wound. Deep tissues were anesthetized with an orthomix solution. I then locked my definitive humeral tray into position with a torque limiting screw. I then impacted the definitive humeral polyethylene liner into position. I then reduced the shoulder. There was good range of motion and good stability after the reduction. The wound was again thoroughly irrigated and a Betadine soak was performed. A deep drain was placed. The deltopectoral interval was closed with interrupted #1 Ethibond suture. The subcutaneous tissue was closed with interrupted 2-0 Vicryl suture. The skin was closed with erik. A sterile dressing was applied. A sling was placed. All needle and sponge counts were correct at the end of the procedure. The patient was transferred to the PACU in stable condition without apparent complication. The PA-C was necessary for assistance with procedure for assistance in positioning, prepping, draping, retraction and closure. I attest to the content of the Intraoperative Record and any orders documented therein. Any exceptions are noted below.
[2018-01-26] MEDS ORDERED: BISACODYL 10 MG SUPP PR PRN (10:15)
[2018-01-26] MEDS ORDERED: MAGNESIUM HYDROXIDE SUSP 30 ML UDC PO PRN (10:15)
--- NOTE | 2018-01-26 10:55 | DIAGNOSTIC IMAGING REPORT ---
RIGHT SHOULDER 2 VIEWS History: Right total shoulder arthroplasty. Degenerative arthritis. Postop. FINDINGS: The patient is status post a right reverse total shoulder arthroplasty. The hardware is intact. No fracture or dislocation. Skin erik and surgical drains are in place. IMPRESSION: Right total shoulder arthroplasty. No evidence for hardware complication Electronically signed by: Rey Denis M.D. 01/26/2018 10:53 AM Dictated Date/Time: 01/26/2018 10:52 AM
--- NOTE | 2018-01-26 10:58 | Anesthesiology Progress Note ---
Anesthesia Post Op Note Date & Time Jan 26, 2018 at 10:58 Vital Signs Pain Intensity: 0 Vital Signs Past 12 Hours Date Time Temp Pulse Resp B/P (MAP) Pulse Ox O2 Delivery O2 Flow Rate FiO2 01/26/18 10:41 133/60 01/26/18 10:37 63 15 01/26/18 10:37 63 15 100 01/26/18 10:36 135/63 01/26/18 10:32 66 17 01/26/18 10:32 66 17 99 01/26/18 10:31 134/64 01/26/18 10:30 15 01/26/18 10:30 64 15 01/26/18 10:26 134/66 01/26/18 10:25 67 21 100 01/26/18 10:25 68 21 01/26/18 10:21 127/77 01/26/18 10:20 19 01/26/18 10:20 68 19 01/26/18 10:16 139/65 01/26/18 10:15 73 18 01/26/18 10:15 73 18 98 01/26/18 10:15 36.2 72 14 139/65 99 Oxymask 10 01/26/18 06:09 36.6 78 18 155/73 96 Room Air Notes Mental Status: alert / awake / arousable, participated in evaluation Pt Amnestic to Procedure: Yes Nausea / Vomiting: adequately controlled Pain: adequately controlled Airway Patency, RR, SpO2: stable & adequate BP & HR: stable & adequate Hydration State: stable & adequate Anesthetic Complications: no major complications apparent
[2018-01-26] MEDS: FERROUS GLUCONATE 324 MG TAB PO SCH ×2 (12:41→17:43)
[2018-01-26] MEDS ORDERED: ZOLP10TA PO (13:20)
--- NOTE | 2018-01-26 13:22 | Medical Consult ---
Consultation Date of Consultation: Jan 26, 2018. Attending Physician: Shun Alvarado M.D. Reason for Consultation: post op medical management History of Present Illness Pt is 77 y/o F with PMH CKD III, HTN, HLD, anxiety, hypothyroidism, fatty liver , fibromyalgia, lumbar stenosis seen in medical consultation after Right Reverse Total Shoulder, Right biceps tenodesis today by Dr Alvarado. Pt reports has not urinated yet since surgery, doesn't feel had any flatus yet. Denies any pain currently. Reports some tingling/numb sensation to right hand/fingers. Denies any nausea or vomiting. Denies AGUILERA, dizziness, neck pain, CP, SOB, choking , abdominal pain. Past Medical/Surgical History Medical Problems: (1) Anxiety Status: Chronic (2) CKD (chronic kidney disease), stage III Status: Chronic (3) DJD of left shoulder Status: Chronic (4) Fatty liver Status: Chronic (5) Fibromyalgia Status: Chronic (6) HLD (hyperlipidemia) Status: Chronic (7) HTN (hypertension) Status: Chronic (8) Hypothyroidism Status: Chronic (9) Lumbar stenosis Status: Chronic (10) Primary osteoarthritis, right shoulder Status: Chronic Surgical Problems: (1) History of left knee replacement Status: Resolved (2) History of left shoulder replacement Status: Resolved (3) Hx of bilateral hip replacements Status: Resolved (4) Hx of carpal tunnel repair Status: Resolved (5) Hx of cholecystectomy Status: Resolved Family History Hypertension Social History Smoking Status: Never Smoker Smokeless Tobacco Use: No Alcohol Use: 3 drinks per week Drug Use: none Marital Status: Housing Status: lives with significant other Allergies Coded Allergies: Levofloxacin (Verified Allergy, Severe, MENTAL CHANGES,RESTLESSNESS, SOB, NAUSEA AND VOMITING, 01/26/18) Acetaminophen (Verified Allergy, Unknown, N/V, 01/26/18) Codeine (Verified Allergy, Unknown, N/V, 01/26/18) Sulfa Antibiotics (Verified Allergy, Unknown, UNKNOWN, 01/26/18) Amlodipine (Verified Adverse Reaction, Intermediate, DIARRHEA, N&V, ) Clonidine (Verified Adverse Reaction, Intermediate, N&V, DIARRHEA, 01/26/18 ) Hydrochlorothiazide (Verified Adverse Reaction, Intermediate, DIARRHEA, N& V, 01/26/18) Prednisone (Verified Adverse Reaction, Intermediate, BLOOD PRESSURE GOES UP OVER 200, 01/26/18) Current Inpatient Medications Current Inpatient Medications Medications (Trade) Dose Ordered Sig/Jacy Route Start Time Stop Time Status Last Admin Dose Admin Lactated Ringer's 1,000 ml @ 15 mls/hr Q24H IV 01/26/18 06:00 01/27/18 05:59 01/26/18 06:36 15 MLS/HR Cefazolin Sodium 7.5 ml @ 2.5 mls/min PREOP IV 01/26/18 06:00 01/26/18 18:00 01/26/18 08:12 2.5 MLS/MIN Acetaminophen (Tylenol Tab) 1,000 mg PREOP PO 01/26/18 06:00 01/26/18 18:00 01/26/18 06:37 1,000 MG Dexamethasone (Decadron Tab) 8 mg PREOP PO 01/26/18 06:00 01/26/18 18:00 01/26/18 06:36 8 MG Famotidine (Pepcid Tab) 20 mg PREOP PO 01/26/18 06:00 01/26/18 18:00 01/26/18 06:36 20 MG Gabapentin (Neurontin Cap) 300 mg PREOP PO 01/26/18 06:00 01/26/18 18:00 01/26/18 06:36 300 MG Metoclopramide HCl (Reglan Tab) 10 mg PREOP PO 01/26/18 06:00 01/26/18 18:00 01/26/18 06:37 10 MG Fentanyl Citrate (Fentanyl Inj) 25 mcg Q5M PRN IV 01/26/18 08:00 01/26/18 13:00 Ondansetron HCl (Zofran Inj) 4 mg ONE PRN IV 01/26/18 08:00 01/26/18 13:00 Ephedrine Sulfate (EpHEDrine SULFATE INJ) 5 mg Q5M PRN IV 01/26/18 08:00 01/26/18 13:00 Atropine Sulfate (Atropine Sulfate 0.1mg/ml Inj) 0.5 mg Q1M PRN IV 01/26/18 08:00 01/26/18 13:00 Atorvastatin Calcium (Lipitor Tab) 10 mg QPM PO 01/26/18 21:00 02/25/18 20:59 Calcium/Vitamin D (Caltrate Plus Tab) 1 tab QPM PO 01/26/18 21:00 02/25/18 20:59 Carvedilol (Coreg Tab) 6.25 mg QPM PO 01/26/18 21:00 02/25/18 20:59 Fluticasone Propionate (Flonase Nasal [place]) 1 sprays HS TRINI 01/26/18 21:00 02/25/18 20:59 Gabapentin (Neurontin Cap) 300 mg QPM PO 01/26/18 21:00 02/25/18 20:59 Levothyroxine Sodium (Synthroid Tab) 100 mcg DAILYBB PO 01/27/18 06:00 02/26/18 05:59 Loratadine (Claritin Tab) 10 mg QAM PO 01/27/18 09:00 02/26/18 08:59 Pantoprazole Sodium (Protonix Tab) 40 mg QPM PO 01/26/18 21:00 02/25/18 20:59 Miscellaneous Information (Order Awaiting Action) 1 ea QS N/A 01/26/18 16:00 02/25/18 15:59 Ondansetron HCl (Zofran Inj) 4 mg Q6H PRN IV 01/26/18 10:15 02/25/18 10:14 Potassium Chloride/Dextrose/ Sod Cl 1,000 ml @ 100 mls/hr Q10H IV 01/26/18 12:00 02/25/18 10:14 Oxycodone HCl (Roxicodone Immediate Rel Tab) `1-2 TABS FOR PAIN `1 TAB... Q4H PRN PO 01/26/18 10:15 02/09/18 10:14 Morphine Sulfate (MoRPHine SULFATE INJ) 2 mg Q4H PRN IV 01/26/18 10:15 02/09/18 10:14 Magnesium Hydroxide (Milk Of Magnesia Susp) 30 ml Q6H PRN PO 01/26/18 10:15 02/25/18 10:14 Bisacodyl (Dulcolax Supp) 10 mg DAILY PRN FL 01/26/18 10:15 02/25/18 10:14 Docusate Sodium (coLACE CAP) 100 mg BID PO 01/26/18 21:00 02/25/18 20:59 Multivitamins (Multivitamin Tab) 1 tab DAILY PO 01/27/18 09:00 02/26/18 08:59 Ferrous Gluconate (Ferrous Gluconate Tab) 324 mg TIDM PO 01/26/18 12:30 02/25/18 12:29 01/26/18 12:41 324 MG Cefazolin Sodium 7.5 ml @ 2.5 mls/min Q8H IV 01/26/18 16:00 01/27/18 00:02 Review of Systems See HPI for pertinent positives & negatives. All other systems reviewed and were otherwise negative Physical Exam Date Time Temp Pulse Resp B/P (MAP) Pulse Ox O2 Delivery O2 Flow Rate FiO2 01/26/18 12:43 61 16 138/76 (96) 99 2.0 01/26/18 12:14 57 16 145/70 (95) 100 2.0 01/26/18 11:35 Nasal Cannula 2.0 01/26/18 11:35 36.5 59 18 135/72 (93) 97 Nasal Cannula 2.0 01/26/18 11:35 Nasal Cannula 2.0 01/26/18 11:18 58 20 01/26/18 11:18 58 20 100 01/26/18 11:16 138/67 01/26/18 11:13 60 19 100 01/26/18 11:13 60 19 01/26/18 11:11 133/63 01/26/18 11:08 60 16 100 01/26/18 11:08 60 16 01/26/18 11:07 36.7 100 Nasal Cannula 2 01/26/18 11:06 133/67 01/26/18 11:03 61 13 01/26/18 11:03 61 13 100 01/26/18 11:02 61 16 100 01/26/18 11:02 61 16 01/26/18 11:01 128/62 01/26/18 10:57 58 19 100 01/26/18 10:57 58 19 01/26/18 10:56 134/65 01/26/18 10:52 63 23 01/26/18 10:52 63 23 100 01/26/18 10:51 130/62 01/26/18 10:47 62 13 99 01/26/18 10:47 62 13 01/26/18 10:46 136/68 01/26/18 10:42 62 17 100 01/26/18 10:42 62 17 01/26/18 10:41 133/60 01/26/18 10:37 63 15 01/26/18 10:37 63 15 100 01/26/18 10:36 135/63 01/26/18 10:32 66 17 01/26/18 10:32 66 17 99 01/26/18 10:31 134/64 01/26/18 10:30 15 01/26/18 10:30 64 15 01/26/18 10:26 134/66 01/26/18 10:25 67 21 100 01/26/18 10:25 68 21 01/26/18 10:21 127/77 01/26/18 10:20 19 01/26/18 10:20 68 19 01/26/18 10:16 139/65 01/26/18 10:15 73 18 01/26/18 10:15 73 18 98 01/26/18 10:15 36.2 72 14 139/65 99 Oxymask 10 01/26/18 06:09 36.6 78 18 155/73 96 Room Air General Appearance: WD/WN, no apparent distress Head: normocephalic, atraumatic Eyes: normal inspection, sclerae normal ENT: hearing grossly normal, pharynx normal, + pertinent finding (mucous membranes moist) Neck: supple, trachea midline Respiratory/Chest: lungs clear, normal breath sounds, no respiratory distress Cardiovascular: regular rate, rhythm Abdomen/GI: normal bowel sounds, non tender, soft Extremities/Musculoskelatal: normal capillary refill, no pedal edema, + pertinent finding (Right shoulder: surgical dressing in place without discharge noted, drain in place with small amount bloody discharge, R arm in sling. Active ROM R fingers, sensation to light touch intact, distal pulses intact. remaining extremities normal appearance, non-tender) Neurologic/Psych: alert, normal mood/affect, normal reflexes Skin: warm/dry Assessment & Plan POST OP DAY#0 S/P RIGHT REVERSE TOTAL SHOULDER, RIGHT BICEPS TENODESIS BY DR. ALVARADO -pain management per ortho -wound management per ortho -PT/OT as appropriate -DVT prophylaxis per ortho -incentive spirometry -monitor H&H for acute blood loss anemia HTN Stable -continue carvedilol, diltiazem, benicar HLD -continue atorvastatin CKD III Cr:1.6 pre-op. Baseline 1.3-1.6 -monitor renal functions -avoid nephrotoxic agents when possible HYPOTHYROIDISM TSH: 0.57 on 12/2017 -continue levothyroxine ANXIETY stable -continue ambien prn insomnia DVT Prophylaxis -per ortho Admit medsurg Full Code Follows with Dr Amado for routine care Pt was seen with Dr Alvarez. See addendum Pt will be followed by Dr Alvarez during remaining hospital course. Attending addendum: Patient seen and examined care coordinated with Joanna Gannon PA-C 77-year-old female who underwent right reverse arthroplasty Recovering well postop Pain well controlled Vitals remain stable We will continue to follow her during her hospital stay Please refer to further documentation by Joanna Gannon PA-C for discussion of other chronic issues Karuna Alvarez MD Additional Copies To Piter Amado M.D.
[2018-01-26] MEDS ORDERED: ZOLPIDEM TARTRATE 10 MG TAB PO PRN (13:30)
[2018-01-26] MEDS: CEFAZOLIN IV 1,000 MG in SYRINGE 0 ML IV SCH (15:16)
[2018-01-26] MEDS: D5W AND 1/2NSS + 20MEQ KCL 1,000 ML IV SCH ×2 (20:35→20:50)
[2018-01-26] MEDS: DOCUSATE SODIUM 100 MG CAP PO SCH (20:50)
[2018-01-26] MEDS ORDERED: PANTOprazole SOD 40 MG TAB PO SCH (21:00)
[2018-01-26] MEDS ORDERED: CARVEDILOL 6.25 MG TAB PO SCH (21:00)
[2018-01-26] MEDS ORDERED: FLUTICASONE PROPIONATE NA SPR 16 GM BTL NAE SCH (21:00)
[2018-01-26] MEDS ORDERED: ATORVASTATIN 10 MG TAB PO SCH (21:00)
[2018-01-26] MEDS ORDERED: CALCIUM 600MG + VIT D 400 IU TAB PO SCH (21:00)
[2018-01-27] MEDS: CEFAZOLIN IV 1,000 MG in SYRINGE 0 ML IV SCH
[2018-01-27] MEDS: OXYCODONE HCL IR 5 MG TAB (IMMEDIATE RELEASE) PO PRN ×3 (00:01→13:10)
[2018-01-27] MEDS: MoRPHine SULFATE 2 MG/ML CARP IV PRN ×2 (01:37→07:38)
[2018-01-27 03:15] VITALS: BP 164/79; PULSE 82; TEMP 36.6; O2SAT 94
[2018-01-27] MEDS ORDERED: LEVOTHYROXINE 100 MCG TAB PO SCH (06:00)
[2018-01-27 06:18] LABS: HEMATOCRIT 35.7 % (37-47); HEMOGLOBIN 12.1 g/dL (12.0-16.0); MEAN CELL VOLUME 90.2 fL (80-100); MEAN CORPUSCULAR HEMOGLOBIN 30.6 pg (25-34); MEAN CORPUSCULAR HGB CONC 33.9 g/dl (32-36); MEAN PLATELET VOLUME 9.8 fL (7.4-10.4); PLATELET COUNT 287 K/uL (130-400); RED CELL DISTRIBUTION WIDTH SD 42.8 fL (36.4-46.3); WHITE BLOOD COUNT 16.59 K/uL (4.8-10.8)
[2018-01-27] MEDS: D5W AND 1/2NSS + 20MEQ KCL 1,000 ML IV SCH (06:27)
[2018-01-27 06:37] LABS: CALCIUM 8.5 mg/dl (8.5-10.1); CREATININE 1.14 mg/dl (0.60-1.20); POTASSIUM 4.4 mmol/L (3.5-5.1)
[2018-01-27 08:05] VITALS: BP 136/74; PULSE 88; TEMP 36.7; O2SAT 93
--- NOTE | 2018-01-27 08:12 | Orthopedic Progress Note ---
Orthopedic Progress Note Date of Service Jan 27, 2018. Subjective Post OP Day: 1 Reports: feeling well, Denies: chest pain, SOB, nausea / vomiting, light headedness, calf pain Objective calves soft nontender, N/V intact, capillary refill less than 2 sec., dressing C /D/I, A&O x3, toes mobile, CMS intact, hemovac drainage (130/50 CC PER SHIFT) Date Time Temp Pulse Resp B/P (MAP) Pulse Ox O2 Delivery O2 Flow Rate FiO2 01/27/18 03:15 36.6 82 16 164/79 (107) 94 Room Air 01/27/18 00:07 Room Air 01/26/18 23:00 36.7 91 16 150/75 (100) 95 Room Air 01/26/18 19:06 36.4 93 18 153/84 (107) 95 Room Air 01/26/18 15:20 Room Air 01/26/18 14:38 35.1 61 16 128/73 (91) 95 Room Air 01/26/18 13:30 58 16 139/79 (99) 99 2.0 01/26/18 12:43 61 16 138/76 (96) 99 2.0 01/26/18 12:14 57 16 145/70 (95) 100 2.0 01/26/18 11:35 Nasal Cannula 2.0 01/26/18 11:35 36.5 59 18 135/72 (93) 97 Nasal Cannula 2.0 01/26/18 11:35 Nasal Cannula 2.0 01/26/18 11:18 58 20 01/26/18 11:18 58 20 100 01/26/18 11:16 138/67 01/26/18 11:13 60 19 100 01/26/18 11:13 60 19 01/26/18 11:11 133/63 01/26/18 11:08 60 16 100 01/26/18 11:08 60 16 01/26/18 11:07 36.7 100 Nasal Cannula 2 01/26/18 11:06 133/67 01/26/18 11:03 61 13 01/26/18 11:03 61 13 100 01/26/18 11:02 61 16 100 01/26/18 11:02 61 16 01/26/18 11:01 128/62 01/26/18 10:57 58 19 100 01/26/18 10:57 58 19 01/26/18 10:56 134/65 01/26/18 10:52 63 23 01/26/18 10:52 63 23 100 01/26/18 10:51 130/62 01/26/18 10:47 62 13 99 01/26/18 10:47 62 13 01/26/18 10:46 136/68 01/26/18 10:42 62 17 100 01/26/18 10:42 62 17 01/26/18 10:41 133/60 01/26/18 10:37 63 15 01/26/18 10:37 63 15 100 01/26/18 10:36 135/63 01/26/18 10:32 66 17 01/26/18 10:32 66 17 99 01/26/18 10:31 134/64 01/26/18 10:30 15 01/26/18 10:30 64 15 01/26/18 10:26 134/66 01/26/18 10:25 67 21 100 01/26/18 10:25 68 21 01/26/18 10:21 127/77 01/26/18 10:20 19 01/26/18 10:20 68 19 01/26/18 10:16 139/65 01/26/18 10:15 73 18 01/26/18 10:15 73 18 98 01/26/18 10:15 36.2 72 14 139/65 99 Oxymask 10 Laboratory Results 24 Hours: Test 01/27/18 05:16 Hematocrit 35.7 % Hemoglobin 12.1 g/dL Assessment & Plan Assessment: POD#1 SP RIGHT REVERSE TSA Plan: PT/OT PAIN MANAGEMENT DC DRAIN TODAY DC HOME TODAY AFTER LUNCH.
[2018-01-27] MEDS ORDERED: ONDA-170 PO (08:15)
[2018-01-27] MEDS ORDERED: RXC5 PO (08:15)
[2018-01-27] MEDS: DOCUSATE SODIUM 100 MG CAP PO SCH (08:16)
[2018-01-27] MEDS: FERROUS GLUCONATE 324 MG TAB PO SCH ×2 (08:16→13:10)
--- NOTE | 2018-01-27 08:17 | Discharge Instructions ---
Discharge Instructions Date of Service Jan 27, 2018. Admission Reason for Admission: Right Shoulder Osteoarthritis Discharge Discharge Diagnosis / Problem: SP RIGHT REVERSE TSA Discharge Goals Goal(s): Decrease discomfort, Improve function, Increase independence Activity Recommendations Activity Limitations: per Instructions/Follow-up section . Instructions / Follow-Up Instructions / Follow-Up ACTIVITY RECOMMENDATIONS: SELF CARE INSTRUCTIONS AFTER TOTAL SHOULDER ARTHROPLASTY REVERSE A. You may do daily exercises as taught in physical therapy while in hospital. No lifting with the operative arm. B. You are to wear your sling/immobilizer at all times EXCEPT when performing your daily exercises and for hygiene purposes. C. You may perform dry, daily dressing changes. Please keep your incision covered. You may shower 48 hours after surgery. Do not apply soap or any ointment/ lotions directly over incision. Do not soak incision in bath tub/swimming pool. D. You may use ice as needed to operative shoulder. SPECIAL CARE INSTRUCTIONS: VERY IMPORTANT TO READ AND REVIEW A. There are a few signs you need to watch for after you are home. Call [facility] at [phone] if you experience any of the followin. Increased severe shoulder pain. Some pain is expected especially when you exercise. 2. Increased swelling in you shoulder or arm; pain or swelling in either upper extremity. 3. Any fluid drainage from the incision. 4. Shortness of breath or chest pain. B. Please call [facility] at [phone] if you have any questions or concerns about your operation or recovery. C. Call your physician if: 1. Temperature is greater than 101 degrees (F). 2. Pain is not relieved by prescribed pain medications. 3. Increase drainage or redness from incision. 4. Unanswered questions or concerns. FOLLOW UP VISIT: Please call [facility] at [phone] to schedule a follow up appointment with Dr. CRAMER or his PA in 12-14 days from your surgery date. Current Hospital Diet Patient's current hospital diet: Regular Diet Discharge Diet Recommended Diet: Regular Diet Procedures Procedures Performed: Right Reverse Total Shoulder, Right biceps tenodesis Pending Studies Studies pending at discharge: no Laboratory Results Hemoglobin A1c Test 01/01/18 15:27 Range/Units Estimated Average Glucose 123 mg/dl Hemoglobin A1c 5.9 H 4.5-5.6 % Medical Emergencies . Who to Call and When: Medical Emergencies: If at any time you feel your situation is an emergency, please call 911 immediately. . Non-Emergent Contact Non-Emergency issues call your: Surgeon . "Provider Documentation" section prepared by Blanca Machuca. . [place] Drug Monitoring Program Search Results: patient reviewed within database, no issues identified
[2018-01-27] MEDS ORDERED: MULTIVITAMIN TAB PO SCH (09:00)
[2018-01-27] MEDS ORDERED: LORATADINE 10 MG TAB PO SCH (09:00)
[2018-01-27 09:26] VITALS: BP 136/74; PULSE 88; TEMP 36.7; O2SAT 93
[2018-01-27 11:35] VITALS: BP 142/82; PULSE 61; TEMP 36.4; O2SAT 95
--- NOTE | 2018-01-27 21:47 | Discharge Summary ---
Orthopedic Discharge Summary Admission Date/Reason Jan 26, 2018 at 06:55 Right Shoulder Osteoarthritis. Discharge Date/Disposition Jan 27, 2018 Home Diagnosis Principal Diagnosis: Right Shoulder Rotator Cuff Arthropathy and osteoarthritis Secondary Diagnoses/Problems: -HTN -CKDIII -Hypothyroidism -Anxiety Procedure(s) Performed Right Reverse Total Shoulder Arthroplasty with biceps tenodesis Consultations Dr. Karuna Alvarez of [facility] service Medication Reconciliation New Medications: Ondansetron Hcl (Zofran) 8 Mg Tab 8 MG PO Q8 PRN for Nausea, #20 TAB Oxycodone HCl (Oxycodone HCl) 5 Mg Tab 5-10 MG PO Q4H PRN for Pain, #60 TAB Continued Medications: Atorvastatin (Lipitor) 10 Mg Tab 1 TAB PO QPM Calcium/Vitamin D (Os-Nate 500 Plus D) Tab 1 TAB PO QPM, 0 Refills Carvedilol (Coreg) 6.25 Mg Tab 6.25 MG PO QPM, TAB Diltiazem Hcl Coated Beads (Matzim La) 300 Mg Tab 1 TAB PO QPM Fluticasone Propionate (Nasal) (Flonase Allergy Relief) 50 Mcg/Act Spr 1-2 SPRAY TRINI HS Gabapentin (Neurontin) 300 Mg Cap 300 MG PO BID, CAP Levothyroxine Sodium (Synthroid) 100 Mcg Tab 100 MCG PO QAM, TAB Loratadine (Claritin) 10 Mg Tab 10 MG PO QAM, TAB CLAIRITIN D Multivitamin (Multivitamin) Tab 1 TAB PO QAM, 0 Refills Olmesartan Medoxomil (Benicar) 40 Mg Tab 1 TAB PO QAM Pantoprazole (Protonix) 40 Mg Tab 40 MG PO QPM, #30 TAB Psyllium (Metamucil) 48.57 % Pow 1 DOSE PO UD PRN for PRN Zolpidem Tartrate (Ambien) 10 Mg Tab 1 TAB PO HS PRN for Insomnia for 30 Days, #30 TAB 5 Refills Discontinued Medications: Meloxicam (Mobic) 7.5 Mg Tab 15 MG PO QPM, TAB Naproxen (Aleve) 220 Mg Tab 220 MG PO UD PRN for PRN, TAB Admission Physical Exam As per Admitting History & Physical. Hospital Course Patient presented for same day admission following Right reverse total shoulder arthroplasty on 01/26/18. She tolerated procedure well. Post-operatively, her activity was progressed and well tolerated. Dr. Karuna Alvarez of medical service was consulted for medical management during admission. Please refer to daily progress notes and PT notes for complete details. After exam on 01/27/18, patient was felt to be stable for discharge home with outpatient physical therapy. Her Hemovac drain was removed prior to discharge. Patient will f/u in the office in about 2 weeks for further evaluation including x-rays and incision check, sooner if having any issues or concerns. Discharge Instructions Please refer to the electronic Patient Visit Report (Discharge Instructions) for additional information.
== END 2018-01-27 13:56 | disposition home or self-care (01) | DRG 483 ==
LOC: C.ACU 05:34 → C.3E 06:55 → ENRESERV 10:41
PROVIDERS: ADMIT Orthopaedic Surgery; ATTEND Orthopaedic Surgery
PROC: 0RRJ00Z Replacement of Right Shoulder Joint with Reverse Ball and Socket Synthetic Substitute, Open Approach (ICD-10-PCS; principal; 2018-01-26 08:00)
DX: M19.011 Primary osteoarthritis, right shoulder (principal); M75.101 Unspecified rotator cuff tear or rupture of right shoulder, not specified as traumatic; Z88.1 Allergy status to other antibiotic agents; Z88.2 Allergy status to sulfonamides; Z88.8 Allergy status to other drugs, medicaments and biological substances; I12.9 Hypertensive chronic kidney disease with stage 1 through stage 4 chronic kidney disease, or unspecified chronic kidney disease; N18.3 Chronic kidney disease, stage 3 (moderate); E03.9 Hypothyroidism, unspecified; F41.9 Anxiety disorder, unspecified; K76.0 Fatty (change of) liver, not elsewhere classified; M79.7 Fibromyalgia; Z96.652 Presence of left artificial knee joint; Z96.612 Presence of left artificial shoulder joint; Z96.643 Presence of artificial hip joint, bilateral; Z82.49 Family history of ischemic heart disease and other diseases of the circulatory system